=== PATIENT | male | born 1970 | race Caucasian/White ===

== ENCOUNTER 2016-07-15 09:04 | Emergency (ER) | payer OTHER ==
[~2016-07-15] VITALS: Ht 177.8 cm; Wt 88.6 kg
[2016-07-15 09:05] VITALS: BP 153/103; TEMP 97.5
[2016-07-15 09:50] LABS: PH 5 (5-8); SQUAMOUS EPITHELIAL None Seen /hpf; URINE APPEARANCE Clear; URINE BACTERIA None Seen /hpf; URINE BILIRUBIN Negative (NEGATIVE); URINE BLOOD 1+ (NEGATIVE); URINE COLOR Yellow; URINE GLUCOSE 1+ (NEGATIVE); URINE KETONE Negative (NEGATIVE); URINE RBC 0-2 /hpf; URINE UROBILINOGEN Negative (NEGATIVE)
[2016-07-15 10:03] LABS: BASO % 0.2 % (0.0-2.0); EOS # 0.1 (0.0-0.7); EOS % 0.6 % (0-4.0); GRAN # 10.6 (1.4-6.5); GRAN % 84.3 % (42.2-75.2); HEMATOCRIT 46.3 % (42.0-52.0); HEMOGLOBIN 15.7 g/dl (13.5-18.0); LYMPH # 1.3 (1.2-3.4); LYMPH % 10.5 % (20.0-51.0); MEAN CELL VOLUME 90 fl (80.0-100.0); MEAN CORPUSCULAR HEMOGLOBIN 31 pg (27.0-31.0); MEAN CORPUSCULAR HGB CONC 34 g/dl (33.0-37.0); MEAN PLATELET VOLUME 10.7 fl (7.4-10.4); MONO # 0.5 (0.1-0.6); MONO % 4.1 % (1.7-9.3); PLATELET COUNT 244 K/mm3 (130-400); RED BLOOD COUNT 5.12 M/mm3 (4.20-5.60); REDCELL DISTRIBUTION WIDTH-CV 11.9 % (11.5-14.5); WHITE BLOOD COUNT 12.6 K/mm3 (4.8-10.8)
[2016-07-15 10:17] LABS: ADJUSTED CALCIUM 9.2 mg/dL (8.4-10.2); ALBUMIN 4.4 gm/dL (3.5-5.0); BILIRUBIN,TOTAL 0.6 mg/dL (0.0-1.0); CALCIUM 9.5 mg/dL (8.4-10.2); CREATININE, serum 1.25 mg/dL (0.66-1.25); TOTAL PROTEIN 7.6 gm/dL (6.4-8.2)
[2016-07-15] MEDS ORDERED: NORCO 325 MG-51 TAB PO (10:30)
[2016-07-15] MEDS ORDERED: PHENERGAN 25 TA25 MG PO (10:30)
[2016-07-15 11:30] VITALS: PULSE 80
== END 2016-07-15 11:31 | disposition home or self-care (01) ==
LOC: COL.ER 09:04
PROVIDERS: Emergency Medicine
DX: N20.1 Calculus of ureter (principal)
CPT/HCPCS: J1170; J1885; J2550; J7030